=== PATIENT | female | born 1940 | race African-American/Black ===

== ENCOUNTER 2017-04-12 16:28 | Inpatient (IN) | payer OTHER ==
[~2017-04-12] VITALS: Ht 167.6 cm; Wt 64.0 kg
[2017-04-12 18:10] LABS: PLATELET COUNT 211 x10^3mcL (130-400); RED CELL DISTRIBUTION WIDTH 13.7 % (11.5-14.5)
[2017-04-12 18:16] LABS: ALKALINE PHOSPHATASE 115 U/L (46-116); ALT/SGPT 28 U/L (14-59); AST/SGOT 4 U/L (15-37); BILIRUBIN TOTAL 0.6 mg/dL (0.20-1.00); CALCIUM 9.8 mg/dL (8.5-10.1); CARBON DIOXIDE 25.8 mmol/L (21-32); CHLORIDE SERUM 113 mmol/L (98-107); HDL CHOLESTEROL 51 mg/dL (40-60); MAGNESIUM 3.2 mg/dL (1.8-2.4); POTASSIUM SERUM 5.2 mmol/L (3.5-5.1); SODIUM SERUM 151 mmol/L (136-145); T4(THYROXINE) 7.4 ug/dL (4.7-13.3)
[2017-04-12 18:19] LABS: ALBUMIN 3.1 g/dL (3.4-5.0); AMYLASE 0 U/L (25-115); CHOLESTEROL 127 mg/dL (<200); TOTAL PROTEIN, SERUM 8.8 g/dL (6.4-8.2)
[2017-04-12 18:48] LABS: CREATININE SERUM 2.1 mg/dL (0.6-1.0)
[2017-04-12 18:54] LABS: GLUCOSE SERUM 650 mg/dL (74-106)
[2017-04-12 19:02] LABS: BAND NEUTROPHIL 0 % (0-10); BASOPHIL 0 % (0-2); MONOCYTE 8 % (0-7); SEGMENTED NEUTROPHILS 85 % (37-75); rbc morphology (normal/abnorm) NORMAL (NORMAL)
[2017-04-12 19:50] LABS: UA SPECIFIC GRAVITY >=1.030 (1.005-1.035); microscopic required? YES; urine erythrocyte 3+ (NEGATIVE)
[2017-04-12] MEDS ORDERED: NEU300 PO (20:00)
[2017-04-12] MEDS ORDERED: METOPROLOL SUCC50 M2 PO (20:00)
[2017-04-12] MEDS ORDERED: PLAVIX75 M1 PO (20:00)
[2017-04-12 20:01] LABS: AMPHETAMINE QUAL UR NONE DETECTED (NEG <=1000)
[2017-04-12] MEDS ORDERED: NIT0.4 SL (20:01)
[2017-04-12] MEDS ORDERED: LIDODERM51 (20:01)
[2017-04-12] MEDS ORDERED: D-20001 TAB PO (20:01)
[2017-04-12] MEDS ORDERED: DULCOLAX10 M1 (20:01)
[2017-04-12] MEDS ORDERED: SENNA8.6 M2 PO (20:02)
[2017-04-12] MEDS ORDERED: MOM PO (20:02)
[2017-04-12 21:09] LABS: LIPASE 57 IU/L (73-393)
[2017-04-12 21:21] VITALS: BP 126/96
[2017-04-12 21:32] VITALS: BP 126/96
[2017-04-12 23:09] VITALS: BP 126/96
[2017-04-13 01:21] VITALS: BP 125/45
[2017-04-13 05:57] VITALS: BP 140/58
[2017-04-13 06:47] LABS: BASOPHIL % 0.2 % (0-2); PLATELET COUNT 187 x10^3mcL (130-400); RED CELL DISTRIBUTION WIDTH 13.6 % (11.5-14.5)
[2017-04-13 07:06] LABS: CARBON DIOXIDE 27.5 mmol/L (21-32); CHLORIDE SERUM 124 mmol/L (98-107); CREATININE SERUM 1.3 mg/dL (0.6-1.0); GLUCOSE SERUM 252 mg/dL (74-106); MAGNESIUM 2.4 mg/dL (1.8-2.4); POTASSIUM SERUM 3.4 mmol/L (3.5-5.1)
[2017-04-13 07:12] LABS: SODIUM SERUM 161 mmol/L (136-145)
[2017-04-13 09:09] VITALS: BP 129/47
[2017-04-13 16:43] VITALS: BP 130/44
[2017-04-13 18:13] LABS: CALCIUM 7.9 mg/dL (8.5-10.1); CARBON DIOXIDE 23.5 mmol/L (21-32); CHLORIDE SERUM 123 mmol/L (98-107); CREATININE SERUM 1.1 mg/dL (0.6-1.0); GLUCOSE SERUM 139 mg/dL (74-106); POTASSIUM SERUM 3.2 mmol/L (3.5-5.1); SODIUM SERUM 158 mmol/L (136-145)
[2017-04-13 21:57] VITALS: BP 136/48
[2017-04-14 05:23] VITALS: BP 124/42
[2017-04-14 06:18] LABS: BASOPHIL % 0.2 % (0-2); PLATELET COUNT 152 x10^3mcL (130-400); RED CELL DISTRIBUTION WIDTH 13.6 % (11.5-14.5)
[2017-04-14 06:29] LABS: CALCIUM 7.8 mg/dL (8.5-10.1); CARBON DIOXIDE 24.4 mmol/L (21-32); CHLORIDE SERUM 120 mmol/L (98-107); GLUCOSE SERUM 415 mg/dL (74-106); PHOSPHOROUS 2.7 mg/dL (2.5-4.9); SODIUM SERUM 154 mmol/L (136-145)
[2017-04-14 08:35] VITALS: BP 160/45
[2017-04-14 17:59] VITALS: BP 135/55
[2017-04-14 22:09] VITALS: BP 137/53
[2017-04-15 06:26] VITALS: BP 140/47
[2017-04-15 06:33] LABS: PLATELET COUNT 145 x10^3mcL (130-400); RED CELL DISTRIBUTION WIDTH 13.4 % (11.5-14.5)
[2017-04-15 07:01] LABS: CALCIUM 7.6 mg/dL (8.5-10.1); CARBON DIOXIDE 21.9 mmol/L (21-32); CHLORIDE SERUM 121 mmol/L (98-107); CREATININE SERUM 0.7 mg/dL (0.6-1.0); GLUCOSE SERUM 180 mg/dL (74-106); MAGNESIUM 1.6 mg/dL (1.8-2.4); PHOSPHOROUS 1.8 mg/dL (2.5-4.9); POTASSIUM SERUM 3.3 mmol/L (3.5-5.1); SODIUM SERUM 154 mmol/L (136-145)
[2017-04-15 08:00] VITALS: BP 151/57
[2017-04-15 09:25] LABS: BAND NEUTROPHIL 2 % (0-10); BASOPHIL 0 % (0-2); MONOCYTE 8 % (0-7); MYELOCYTE 1 % (0-2); SEGMENTED NEUTROPHILS 77 % (37-75)
[2017-04-15 13:15] VITALS: BP 155/62
[2017-04-15 18:25] LABS: CALCIUM 7.7 mg/dL (8.5-10.1); CARBON DIOXIDE 22.2 mmol/L (21-32); CHLORIDE SERUM 119 mmol/L (98-107); CREATININE SERUM 0.8 mg/dL (0.6-1.0); GLUCOSE SERUM 257 mg/dL (74-106); POTASSIUM SERUM 4.5 mmol/L (3.5-5.1); SODIUM SERUM 151 mmol/L (136-145)
[2017-04-15 18:55] VITALS: BP 168/60
[2017-04-15 20:20] VITALS: BP 145/64
[2017-04-16 05:00] VITALS: BP 148/52
[2017-04-16 07:54] LABS: PLATELET COUNT 152 x10^3mcL (130-400); RED CELL DISTRIBUTION WIDTH 13.8 % (11.5-14.5)
[2017-04-16 08:21] LABS: CARBON DIOXIDE 22.4 mmol/L (21-32); CHLORIDE SERUM 118 mmol/L (98-107); CREATININE SERUM 0.7 mg/dL (0.6-1.0); GLUCOSE SERUM 185 mg/dL (74-106); PHOSPHOROUS 2.1 mg/dL (2.5-4.9); SODIUM SERUM 152 mmol/L (136-145)
[2017-04-16 10:02] VITALS: BP 150/57
[2017-04-16 18:12] VITALS: BP 157/65
[2017-04-16 21:00] VITALS: BP 159/48
[2017-04-16 21:53] LABS: BAND NEUTROPHIL 2 % (0-10); MONOCYTE 7 % (0-7); PLATELET MORPHOLOGY LARGE PLATELET SEEN; SEGMENTED NEUTROPHILS 75 % (37-75); rbc morphology (normal/abnorm) NORMAL (NORMAL)
[2017-04-17 05:15] VITALS: BP 136/49
[2017-04-17 06:38] LABS: BASOPHIL % 0.3 % (0-2); PLATELET COUNT 143 x10^3mcL (130-400); RED CELL DISTRIBUTION WIDTH 13.7 % (11.5-14.5)
[2017-04-17 09:47] VITALS: BP 137/47
[2017-04-17 12:04] LABS: CALCIUM 8.3 mg/dL (8.5-10.1); CHLORIDE SERUM 117 mmol/L (98-107); CREATININE SERUM 0.7 mg/dL (0.6-1.0); POTASSIUM SERUM 3.6 mmol/L (3.5-5.1); SODIUM SERUM 149 mmol/L (136-145)
[2017-04-17 12:09] LABS: GLUCOSE SERUM 121 mg/dL (74-106)
[2017-04-17 13:52] VITALS: BP 160/50
[2017-04-17 17:15] VITALS: BP 158/58
[2017-04-17 21:27] VITALS: BP 141/62
[2017-04-18 05:11] VITALS: BP 153/54
[2017-04-18 06:41] LABS: CALCIUM 8.5 mg/dL (8.5-10.1); CARBON DIOXIDE 25.5 mmol/L (21-32); CHLORIDE SERUM 116 mmol/L (98-107); CREATININE SERUM 0.6 mg/dL (0.6-1.0); MAGNESIUM 1.9 mg/dL (1.8-2.4); PHOSPHOROUS 2.1 mg/dL (2.5-4.9); POTASSIUM SERUM 3.1 mmol/L (3.5-5.1); SODIUM SERUM 152 mmol/L (136-145)
[2017-04-18 07:34] LABS: GLUCOSE SERUM 48 mg/dL (74-106)
[2017-04-18 08:17] LABS: BASOPHIL % 0.3 % (0-2)
[2017-04-18 08:32] LABS: RED CELL DISTRIBUTION WIDTH 13.6 % (11.5-14.5)
[2017-04-18 08:35] LABS: PLATELET COUNT 120 x10^3mcL (130-400)
[2017-04-18 09:19] VITALS: BP 147/62
[2017-04-18 12:14] VITALS: BP 154/65
[2017-04-18 16:30] VITALS: BP 149/59
[2017-04-18 19:49] VITALS: Ht 167.6 cm; Wt 64.0 kg
[2017-04-18 21:26] VITALS: BP 151/51
[2017-04-19 06:00] VITALS: BP 138/63
[2017-04-19 06:42] LABS: CALCIUM 8.1 mg/dL (8.5-10.1); CARBON DIOXIDE 28.1 mmol/L (21-32); CHLORIDE SERUM 112 mmol/L (98-107); CREATININE SERUM 0.7 mg/dL (0.6-1.0); GLUCOSE SERUM 177 mg/dL (74-106); MAGNESIUM 1.7 mg/dL (1.8-2.4); PHOSPHOROUS 1.6 mg/dL (2.5-4.9); POTASSIUM SERUM 3.1 mmol/L (3.5-5.1); SODIUM SERUM 148 mmol/L (136-145)
[2017-04-19 06:51] LABS: BASOPHIL % 0.3 % (0-2); PLATELET COUNT 166 x10^3mcL (130-400); RED CELL DISTRIBUTION WIDTH 13.8 % (11.5-14.5)
[2017-04-19 09:35] VITALS: BP 129/57
[2017-04-19 16:54] VITALS: BP 154/52
[2017-04-19 21:37] VITALS: BP 106/57
[2017-04-20 05:57] VITALS: BP 130/55
[2017-04-20 06:37] LABS: BASOPHIL % 0.3 % (0-2); PLATELET COUNT 177 x10^3mcL (130-400); RED CELL DISTRIBUTION WIDTH 14.1 % (11.5-14.5)
[2017-04-20 06:42] LABS: CALCIUM 7.1 mg/dL (8.5-10.1); CARBON DIOXIDE 27.1 mmol/L (21-32); CHLORIDE SERUM 105 mmol/L (98-107); CREATININE SERUM 0.7 mg/dL (0.6-1.0); GLUCOSE SERUM 246 mg/dL (74-106); MAGNESIUM 1.3 mg/dL (1.8-2.4); PHOSPHOROUS 3.2 mg/dL (2.5-4.9); POTASSIUM SERUM 3.1 mmol/L (3.5-5.1); SODIUM SERUM 140 mmol/L (136-145)
[2017-04-20 10:02] VITALS: BP 133/55
[2017-04-20 14:10] VITALS: BP 133/55
[2017-04-20] MEDS ORDERED: RELION HUMUL100 U/M2 SC (14:22)
[2017-04-20] MEDS ORDERED: ACCU-CHEK1 EAC2 MC (14:29)
[2017-04-20] MEDS ORDERED: TEST STRIPS1 EACH MC (15:28)
[2017-04-20] MEDS ORDERED: LANCET DEVICE1 EACH MC (15:29)
[2017-04-20] MEDS ORDERED: GLUCAGON EMERGEN1 MG IM (15:31)
[2017-04-20 15:56] VITALS: BP 133/55
== END 2017-04-20 19:07 | disposition hospice, home (50) | DRG 871 ==
LOC: ED 16:28 → MU 19:36 → DU 19:36 → MU 04-13 09:56
PROVIDERS: Emergency Medicine; Student in an Organized Health Care Education/Training Program; ADMIT Family Medicine
DX: A41.9 Sepsis, unspecified organism (principal); R65.21 Severe sepsis with septic shock; J69.0 Pneumonitis due to inhalation of food and vomit; N17.0 Acute kidney failure with tubular necrosis; G93.41 Metabolic encephalopathy; N39.0 Urinary tract infection, site not specified; E87.0 Hyperosmolality and hypernatremia; E44.0 Moderate protein-calorie malnutrition; R64 Cachexia; E86.0 Dehydration; I69.391 Dysphagia following cerebral infarction; R13.10 Dysphagia, unspecified; E83.41 Hypermagnesemia; E87.5 Hyperkalemia; E11.65 Type 2 diabetes mellitus with hyperglycemia; I10 Essential (primary) hypertension; Z66 Do not resuscitate; Z68.22 Body mass index [BMI] 22.0-22.9, adult; Z87.891 Personal history of nicotine dependence; Z86.711 Personal history of pulmonary embolism; Z79.84 Long term (current) use of oral hypoglycemic drugs; Z86.718 Personal history of other venous thrombosis and embolism; Z79.02 Long term (current) use of antithrombotics/antiplatelets
CPT/HCPCS: 82962; 83880; 92526-GN; 92610; G0480; J0696; J1610; J1815; J1956; J3475; J3480; J3490; J7030; J7060; J7070; J7620; Q0092